=== PATIENT | male | born 1965 | race Two or more races ===

== ENCOUNTER 2018-04-20 22:14 | Inpatient (IN) | payer MEDICAID ==
[2018-04-20] MEDS ORDERED: Naloxone 0.4 mg/ml Inj (Adult) ONE ×2 (22:19→22:21)
[2018-04-20] MEDS ORDERED: Propofol 10 mg/ml 0 MG/0 ML VIAL ONE (22:36)
[2018-04-20 22:52] LABS: BASO % 0.4 % (0.0-2.0); EOS % 0.3 % (0.0-4.0); HEMOGLOBIN 14.1 g/dL (12.0-18.0); LYMPH # 2.1 K/uL (1.0-4.3); MEAN CELL VOLUME 89.9 fl (80.0-94.0); MEAN CORPUSCULAR HEMOGLOBIN 30.3 pg (27.0-31.0); MEAN CORPUSCULAR HGB CONC 33.7 g/dL (33.0-37.0); MEAN PLATELET VOLUME 7.5 fl (7.2-11.7); MONO % 11.8 % (0.0-10.0); NEUT # 5.5 K/uL (1.8-7.0); NEUT % 63.5 % (50.0-75.0); RBC 4.66 Mil/uL (4.40-5.90); RED CELL DISTRIBUTION WIDTH 14.2 % (11.5-14.5); WHITE BLOOD COUNT 8.7 K/uL (4.8-10.8)
[2018-04-20 23:01] LABS: PARTIAL THROMBOPLASTIN TIME 25.8 Seconds (25.6-37.1); PROTHROMBIN TIME 11.3 Seconds (9.8-13.1)
--- NOTE | 2018-04-20 23:04 | ED PDOC ---
HPI: Cardiac Arrest Time Seen by Provider: 04/20/18 22:50 Chief Complaint (Nursing): Cardiac Arrest Chief Complaint (Provider): Obtunded Reason For Code Blue: Unresponsive Circumstances: Brought To ED By EMS CPR Initiated Prior To MD Arrival?: Yes Down-Time Before ACLS: Unknown Treatment Initiated Prior To MD Arrival: CPR Additional Complaint(s): 53yo male, brought to ER by police and EMS with CPR in progress. Per police, patient was in a park and called 911 and reported he drank "a quarter of a bottle of red wine" and took unknown pills. Police report the patient was alert and repsonsive upon their arrival to the scene and "went out of it during the interview." En route to ER, patient was given 0.4 mg Narcan x 2 intranasally with no resolution of symptoms. On arrival, patient is obtunded; limited history due to patient's clinical condition. - Initial Findings Mentation: Unresponsive Rhythm: Tachycardia Past Medical History Reviewed: Unable To Obtain Vital Signs: Last Vital Signs Temp 96.5 F L 04/20/18 22:50 Pulse 90 04/20/18 23:45 Resp 14 04/20/18 23:45 BP 100/66 04/20/18 23:45 Pulse Ox 100 04/20/18 23:45 - Family History Family History: States: Unknown Family Hx - Allergies Allergies/Adverse Reactions: Allergies Allergy/AdvReac Type Severity Reaction Status Date / Time Unobtainable Allergy Verified 04/20/18 22:33 Review of Systems Review Of Systems: ROS cannot be obtained secondary to pt's inabilty to answer questions. Physical Exam - Reviewed Nursing Documentation Reviewed: Yes Vital Signs Reviewed: Yes - Physical Exam Appears: Positive for: In Acute Distress (Obtunded) Head Exam: Positive for: ATRAUMATIC, NORMAL INSPECTION, NORMOCEPHALIC Skin: Positive for: Normal Color Eye Exam: Positive for: Other (pinpoint pupils) Cardiovascular/Chest: Positive for: Tachycardia Back: Positive for: Other (atraumatic) Extremity: Positive for: Other (atraumatic; no track roy noted) Neurologic/Psych: Positive for: Other (GSC score of 3; absent gag reflex). Negative for: Alert, Oriented - Laboratory Results Result Diagrams: 04/20/18 22:44 04/20/18 22:44 - Critical Care Total Time (In Min): 90 Documented Critical Care: Time excludes all time spent performint seperately billable procedures Medical Decision Making Medical Decision Making: Assessment/plan: Patient brought in unresponsive by [place] PD/EMS Patient had unlabled medications in a pill bottle, examined by ER attending Dr. Miranda and patient has: Seroquil 100mg, Seroquil 200mg, Lorazepam 1mg, and Depakote 250 mg delayed release. Recommendations of poison control: 1) repeat depakote level in 4-6 hours 2) repeat EKG's serially 3) L-carnitine to be given if ammonia level is elevated 4) lipid emulsion if all other measures fail (to be re-discussed with poison control) EKG: Sinus tachycardia at 108bpm Normal ST segment Normal QRS 2225 Patient given narcan 2mg IV with no resolution of symptoms 2233 Patient intubated by provider for airway protection 2240 Right femoral triple lumen central line placed 2240 Poison control contacted recommend supportive treatment, 50g activated charcoal. -- Labs -- CT Head w/o contrast -- IV Fluids -- Chest x-ray -- Levophed 4mg/250ml D5W 2308 Patient placed on continuous monitoring analyst. Patient admitted to ICU under Dr. West. Dr. Sanchez at bedside Patient's drug screen negative likely because of recent ingestion. BP improving with levophed Scribe Attestation: Documented by Sayda Naqvi, acting as a scribe for Javier Huang MD. Provider Scribe Attestation: All medical record entries made by the Scribe were at my direction and personally dictated by me. I have reviewed the chart and agree that the record accurately reflects my personal performance of the history, physical exam, medical decision making, and the department course for this patient. I have also personally directed, reviewed, and agree with the discharge instructions and disposition. Disposition - Clinical Impression Clinical Impression: Drug overdose - Disposition Disposition Time: 23:00 Condition: SERIOUS Central Line Placement - Central Line Placement Indication: Emergent IV Access Central Line Placement: Right: Femoral The Area Was Thoroughly Prepared With: Betadine, Draped Using Sterile Technique Procedure: Triple Lumen, Sterile Dressing Placed Over Line Procedure: Intubation - Time Performed Time Performed: 22:33 - Time Out Time Out: Side verified, Site verified, Patient ID confirmed - Consent Obtained Consent obtained: Emergent consent implied - Performed By Performed by: Attending Physician - Indications Indication(s):: Airway protection - Method Method:: Oral-Laryngoscopy - Rapid Sequence Intubation Pretreatment:: Crioid Pressure - Tube type Tube type:: Endotracheal tube (7-0) Number of attempts:: 1 Depth measured at lip: cm: 23 - Confirmation Confirmation: Direct visual.of intubate, End-tidal CO2 positive, Bilat. breath sounds - Post-intubation CXR Post-intubation CXR: CM above jaylon - Post-intubation O2 sat % Post-intubation O2 sat%:: 98 - ABG Ordered ABG ordered:: Yes - Patient Tolerated Procedure Patient Tolerated Procedure:: Well Central Line Placement - Central Line Placement Indication: Emergent IV Access Central Line Placement: Right: Femoral The Area Was Thoroughly Prepared With: Betadine Procedure: Triple Lumen, Placed Using Standard Seldinger Technique, Catheter Was Sewn Into Place, Sterile Dressing Placed Over Line, Procedure Tolerated Well
[2018-04-20 23:05] LABS: ACETAMINOPHEN < 10.0 ug/ml (10.0-30.0); SALICYLATE < 1.0 mg/dl
[2018-04-20 23:06] LABS: URINE BILIRUBIN NEGATIVE (NEGATIVE); URINE BLOOD NEGATIVE (NEGATIVE); URINE CLARITY SLIGHTY-CLOUDY (Clear); URINE COLOR YELLOW (YELLOW); URINE GLUCOSE (UA) NEG (Normal); URINE LEUKOCYTE ESTERASE NEG Leu/uL (Negative); URINE PROTEIN NEGATIVE (NEGATIVE); URINE UROBILINOGEN 0.2-1.0 mg/dL (0.2-1.0)
[2018-04-20 23:06] LABS: ALB/GLOB RATIO 1.3 (1.0-2.1); ALBUMIN 3.8 g/dL (3.5-5.0); ALT/SGPT 29 U/L (21-72); AST/SGOT 21 U/L (17-59); BLOOD UREA NITROGEN 16 mg/dl (9-20); CALCIUM 8.8 mg/dL (8.4-10.2); GFR AFRICAN-AMERICAN > 60; GFR NON-AFRICAN AMERICAN 53
[2018-04-20] MEDS ORDERED: Activated Charcoal/Sorbitol 25 GM/120 ML PO ONE ×2 (23:06→23:07)
[2018-04-20 23:10] LABS: VALPROIC ACID < 10.0 ug/mL (50.0-100.0)
[2018-04-20 23:19] LABS: BARBITURATES, UR NEGATIVE (NEGATIVE); BENZODIAZEPINES, UR NEGATIVE (NEGATIVE); OPIATES, UR NEGATIVE (NEGATIVE); PHENCYCLIDINE, UR NEGATIVE (NEGATIVE)
[2018-04-20] MEDS ORDERED: Naloxone 0.4 mg/ml Inj (Adult) IVP STA (23:23)
[2018-04-20 23:39] LABS: VENOUS BLOOD GAS BASE EXCESS -2.6 mmol/L (0.0-2.0); VENOUS BLOOD GAS PCO2 36 mmHg (40-60); VENOUS BLOOD GAS PO2 76 mm/Hg (30-55); VENOUS BLOOD PH 7.39 (7.32-7.43)
[2018-04-20] MEDS ORDERED: Sodium Chloride 0.9% 1,000 ML IV SCH (23:45)
[2018-04-20 23:47] LABS: ABG ALLEN TEST YES; ARTERIAL BLOOD GAS HCO3 20.9 mmol/L (21-28); ARTERIAL BLOOD GAS O2 SAT 99.4 % (95-98); ARTERIAL BLOOD GAS PCO2 40 mm/Hg (35-45); ARTERIAL BLOOD GAS PH 7.32 (7.35-7.45); ARTERIAL BLOOD GAS PO2 239 mm/Hg (80-100); ARTERIAL BLOOD GAS TCO2 21.8 mmol/L (22-28)
--- NOTE | 2018-04-21 | CP.PCM.CON ---
History of Present Illness - History of Present Illness History of Present Illness: CC: Overdose, respiratory arrest HPI: This is a 53 y/o male with unknown medical history who called 911 from a park saying he drank part of a bottle of red wine and took several unknown pills. Apparently patient was alert and responsive when police arrived, but then lost consciousness. On the way to the ER, he was given intranasal narcan with no effect. Apparently on the way, EMS started CPR, but there is no evidence the patient actually lost pulse/went into cardiac arrest. On arrival to the ER his mental status declined and he was intubated. He was also hypotensive, so a central line was placed and he was started on levophed. The medications the patient took were identified as the following: Seroquel 100mg, Seroquel 200mg, Lorazepam 1mg, and Depakote 250 mg delayed release But it is unclear how much of each the patient took. -- Poison control was notified, and their recommendations were the followin) repeat depakote level in 4-6 hours 2) repeat EKG's serially 3) L-carnitine to be given if ammonia level is elevated 4) lipid emulsion if all other measures fail (to be re-discussed with poison control) -- ROS: unable to perform, patient not awake MHx/SHx: Unknown Allergies: Cannot be obtained Med Rec: Cannot be obtained Family/Social Hx: Unknown Past Patient History - Past Social History Smoking Status: Unknown If Ever Smoked - PSYCHIATRIC Hx Substance Use: No Meds Allergies/Adverse Reactions: Allergies Allergy/AdvReac Type Severity Reaction Status Date / Time Unobtainable Allergy Verified 04/20/18 22:33 - Medications Medications: Current Medications Norepinephrine Bitartrate 4 mg (/ Dextrose) 254 mls @ 9.52 mls/hr IV .Q24H DENG ; 2.5 MCG/MIN PRN Reason: Protocol Last Admin: 04/20/18 23:23 Dose: 2.5 mcg/min, 9.52 mls/hr Sodium Chloride (Sodium Chloride 0.9%) 4,000 mls @ 1,000 mls/hr IV .Q4H DENG Stop: 04/21/18 23:27 Last Admin: 04/20/18 23:38 Dose: 1,000 mls/hr Sodium Chloride (Sodium Chloride 0.9%) 1,000 mls @ 125 mls/hr IV .Q8H DENG Stop: 04/21/18 07:44 Pantoprazole Sodium (Protonix Inj) 40 mg IVP DAILY [facility] Physical Exam - Constitutional Appears: No Acute Distress - Head Exam Head Exam: ATRAUMATIC, NORMOCEPHALIC - ENT Exam ENT Exam: Mucous Membranes Moist - Respiratory Exam Additional comments: coarse breath sounds, on vent - Cardiovascular Exam Cardiovascular Exam: Tachycardia, +S1, +S2 - GI/Abdominal Exam GI & Abdominal Exam: Normal Bowel Sounds, Soft - Extremities Exam Extremities exam: Positive for: full ROM, normal inspection - Neurological Exam Additional comments: unresponsive, not sedated - Skin Skin Exam: Dry, Warm Results - Vital Signs Recent Vital Signs: Last Vital Signs Temp 96.5 F L 04/20/18 22:50 Pulse 90 04/20/18 23:45 Resp 14 04/20/18 23:45 BP 100/66 04/20/18 23:45 Pulse Ox 100 04/20/18 23:45 - Labs Result Diagrams: 04/20/18 22:44 04/20/18 22:44 Labs: Laboratory Results - last 24 hr 04/20/18 04/20/18 04/20/18 22:44 22:44 22:44 WBC 8.7 RBC 4.66 Hgb 14.1 Hct 41.9 MCV 89.9 MCH 30.3 MCHC 33.7 RDW 14.2 Plt Count 249 MPV 7.5 Neut % (Auto) 63.5 Lymph % (Auto) 24.0 [place] % (Auto) 11.8 H Eos % (Auto) 0.3 Baso % (Auto) 0.4 Neut # (Auto) 5.5 Lymph # (Auto) 2.1 [place] # (Auto) 1.0 H Eos # (Auto) 0.0 Baso # (Auto) 0.0 PT 11.3 INR 1.0 APTT 25.8 pCO2 pO2 HCO3 ABG pH ABG Total CO2 ABG O2 Saturation ABG Base Excess Flo Test ABG Potassium A-a O2 Difference Glucose Lactate Mechanical Rate FiO2 Tidal Volume Sodium 136 Potassium 3.9 Chloride 101 Carbon Dioxide 23 Anion Gap 16 BUN 16 Creatinine 1.4 Est GFR ( Amer) > 60 Est GFR (Non-Af Amer) 53 Random Glucose 120 H Calcium 8.8 Phosphorus 4.0 Magnesium 2.4 H Total Bilirubin 0.4 AST 21 ALT 29 Alkaline Phosphatase 54 Troponin I < 0.0120 Total Protein 6.8 Albumin 3.8 Globulin 3.0 Albumin/Globulin Ratio 1.3 Arterial Blood Potassium Urine Color Urine Clarity Urine pH Ur Specific [place] Urine Protein Urine Glucose (UA) Urine Ketones Urine Blood Urine Nitrate Urine Bilirubin Urine Urobilinogen Ur Leukocyte Esterase Urine Microscopic WBC Salicylates Urine Opiates Screen Urine Methadone Screen Acetaminophen Ur Barbiturates Screen Valproic Acid Ur Phencyclidine Scrn Ur Amphetamines Screen U Benzodiazepines Scrn U Oth Cocaine Metabols U Cannabinoids Screen Alcohol, Quantitative 217 H 04/20/18 04/20/18 04/20/18 22:44 22:50 22:50 WBC RBC Hgb Hct MCV MCH MCHC RDW Plt Count MPV Neut % (Auto) Lymph % (Auto) [place] % (Auto) Eos % (Auto) Baso % (Auto) Neut # (Auto) Lymph # (Auto) [place] # (Auto) Eos # (Auto) Baso # (Auto) PT INR APTT pCO2 pO2 HCO3 ABG pH ABG Total CO2 ABG O2 Saturation ABG Base Excess Flo Test ABG Potassium A-a O2 Difference Glucose Lactate Mechanical Rate FiO2 Tidal Volume Sodium Potassium Chloride Carbon Dioxide Anion Gap BUN Creatinine Est GFR ( Amer) Est GFR (Non-Af Amer) Random Glucose Calcium Phosphorus Magnesium Total Bilirubin AST ALT Alkaline Phosphatase Troponin I Total Protein Albumin Globulin Albumin/Globulin Ratio Arterial Blood Potassium Urine Color Yellow Urine Clarity Slighty-cloudy Urine pH 6.0 Ur Specific [place] 1.008 Urine Protein Negative Urine Glucose (UA) Neg Urine Ketones Negative Urine Blood Negative Urine Nitrate Negative Urine Bilirubin Negative Urine Urobilinogen 0.2-1.0 Ur Leukocyte Esterase Neg Urine Microscopic WBC 1 Salicylates < 1.0 Urine Opiates Screen Negative Urine Methadone Screen Negative Acetaminophen < 10.0 L Ur Barbiturates Screen Negative Valproic Acid < 10.0 L Ur Phencyclidine Scrn Negative Ur Amphetamines Screen Negative U Benzodiazepines Scrn Negative U Oth Cocaine Metabols Negative U Cannabinoids Screen Negative Alcohol, Quantitative 04/20/18 23:38 WBC RBC Hgb Hct MCV MCH MCHC RDW Plt Count MPV Neut % (Auto) Lymph % (Auto) [place] % (Auto) Eos % (Auto) Baso % (Auto) Neut # (Auto) Lymph # (Auto) [place] # (Auto) Eos # (Auto) Baso # (Auto) PT INR APTT pCO2 40 pO2 239 H HCO3 20.9 L ABG pH 7.32 L ABG Total CO2 21.8 L ABG O2 Saturation 99.4 H ABG Base Excess -5.2 L Flo Test Yes ABG Potassium 3.5 L A-a O2 Difference 139.0 Glucose 125 H Lactate 3.0 H Mechanical Rate 14 FiO2 60.0 Tidal Volume 500 Sodium 136.0 Potassium Chloride 108.0 H Carbon Dioxide Anion Gap BUN Creatinine Est GFR ( Amer) Est GFR (Non-Af Amer) Random Glucose Calcium Phosphorus Magnesium Total Bilirubin AST ALT Alkaline Phosphatase Troponin I Total Protein Albumin Globulin Albumin/Globulin Ratio Arterial Blood Potassium 3.5 L Urine Color Urine Clarity Urine pH Ur Specific [place] Urine Protein Urine Glucose (UA) Urine Ketones Urine Blood Urine Nitrate Urine Bilirubin Urine Urobilinogen Ur Leukocyte Esterase Urine Microscopic WBC Salicylates Urine Opiates Screen Urine Methadone Screen Acetaminophen Ur Barbiturates Screen Valproic Acid Ur Phencyclidine Scrn Ur Amphetamines Screen U Benzodiazepines Scrn U Oth Cocaine Metabols U Cannabinoids Screen Alcohol, Quantitative - EKG Data EKG Interpreted by: Myself EKG shows normal: Sinus rhythm Rate: Tachycardia - EKG Data EKG comments: sinus tach - Imaging and Cardiology Chest x-ray Status: Image reviewed by me (No acute findings. Patient is now intubated.) Assessment & Plan (1) Overdose Assessment and Plan: 53 y/o male with polysubstance overdose in suicide attempt. -admit to ICU -Serial depakote levels and serial EKGs as noted per poison control in history section -Repeat labs in AM -Repeat CXR and ABG in AM -Cont IVF -Cont Pressors as needed to maintain MAP 55-60 -GI PPx with IV protonix -DVT PPx with SCDs only for now Status: Acute (2) Respiratory arrest Status: Acute (3) DVT prophylaxis Status: Acute
[2018-04-21 04:34] LABS: ABG ALLEN TEST YES; ARTERIAL BLOOD GAS HEMOGLOBIN 12.2 g/dL (11.7-17.4); ARTERIAL BLOOD GAS O2 CAPACITY 17.5 mL/dL (16-24); ARTERIAL BLOOD GAS O2 CONTENT 17.4 ML/dL (15-23); ARTERIAL BLOOD GAS O2 SAT 99.7 % (95-98); ARTERIAL BLOOD GAS PCO2 42 mm/Hg (35-45); ARTERIAL BLOOD GAS PH 7.33 (7.35-7.45); ARTERIAL BLOOD GAS PO2 275 mm/Hg (80-100); ARTERIAL BLOOD GAS TCO2 23.4 mmol/L (22-28)
[2018-04-21 05:29] LABS: BASO % 0.3 % (0.0-2.0); EOS % 0.1 % (0.0-4.0); HEMOGLOBIN 13.2 g/dL (12.0-18.0); LYMPH # 1.5 K/uL (1.0-4.3); LYMPH % 13.9 % (20.0-40.0); MEAN CELL VOLUME 91.3 fl (80.0-94.0); MEAN CORPUSCULAR HEMOGLOBIN 30.6 pg (27.0-31.0); MEAN CORPUSCULAR HGB CONC 33.5 g/dL (33.0-37.0); MEAN PLATELET VOLUME 7.7 fl (7.2-11.7); MONO # 1.6 K/uL (0.0-0.8); MONO % 14.8 % (0.0-10.0); NEUT # 7.5 K/uL (1.8-7.0); NEUT % 70.9 % (50.0-75.0); NRBC % 0.1 % (0.0-0.0); RBC 4.32 Mil/uL (4.40-5.90); RED CELL DISTRIBUTION WIDTH 14.4 % (11.5-14.5); WHITE BLOOD COUNT 10.6 K/uL (4.8-10.8)
[2018-04-21 05:44] LABS: ALB/GLOB RATIO 1.2 (1.0-2.1); ALBUMIN 3.1 g/dL (3.5-5.0); ALT/SGPT 27 U/L (21-72); AST/SGOT 17 U/L (17-59); BLOOD UREA NITROGEN 13 mg/dl (9-20); GFR AFRICAN-AMERICAN > 60; GFR NON-AFRICAN AMERICAN > 60
--- NOTE | 2018-04-21 09:06 | CT ---
Date of service: 04/21/2018 PROCEDURE: CT HEAD WITHOUT CONTRAST. HISTORY: unresponsive COMPARISON: None available. TECHNIQUE: Axial computed tomography images were obtained through the head/brain without intravenous contrast. Radiation dose: Total exam DLP = 934.02 mGy-cm. This CT exam was performed using one or more of the following dose reduction techniques: Automated exposure control, adjustment of the mA and/or kV according to patient size, and/or use of iterative reconstruction technique. FINDINGS: HEMORRHAGE: Non BRAIN: No mass effect or edema. No atrophy or chronic microvascular ischemic changes. VENTRICLES: Unremarkable. No hydrocephalus. CALVARIUM: Unremarkable. PARANASAL SINUSES: Mild chronic ethmoid sinusitis MASTOID AIR CELLS: Unremarkable as visualized. No inflammatory changes. OTHER FINDINGS: None. IMPRESSION: No intracranial mass, hemorrhage or evidence of acute infarct. Mild chronic ethmoid sinusitis. Otherwise unremarkable. The preliminary findings for this examination were reported by [facility] at 12:52 a.m. on 04/21/2018. There is concurrence of this report with the preliminary findings.
--- NOTE | 2018-04-21 11:51 | RAD ---
Date of service: 04/21/2018 PROCEDURE: CHEST RADIOGRAPH, 1 VIEW HISTORY: intubated COMPARISON: 04/20/2018 FINDINGS: LUNGS: Clear. PLEURA: No pneumothorax or pleural fluid seen. CARDIOVASCULAR: ET tube and NG tube unchanged in position. OSSEOUS STRUCTURES: No significant abnormalities. VISUALIZED UPPER ABDOMEN: Normal. OTHER FINDINGS: None. IMPRESSION: No active disease.
--- NOTE | 2018-04-21 12:47 | CP.PCM.CON ---
History of Present Illness - History of Present Illness History of Present Illness: This 53 YOM was brought to ER by EMS after he called himself and told he had ingested lots of his meds and a bottled of red wine. When police arrived , he was reported to be awake, but lost conscious soon. He was given intranasal narcan without any effect. CPR was started by EMS by reportedly he had a pulse when brought to ER and was intubated in ER. Admitting physician and ER, d/w poison control and patient is being given supportive treatment . He was hypotensive , was give IVF and was started on low dose Levophed through a TLC. Repeated ELG has been unremarkable, electrolytes has been unremarkable. valporic acid level is not high and ammonia level also is low. I have evaluate the patient multiple times in ICU since morning, his BP has been stale, on levophed, which is being taperred off. He was totally unresponsive in the morning but now, by noon time , he opens his eyes on verbal command but not following command, still very sleepy. The medications the patient took were identified as the following: Seroquel 100mg, Seroquel 200mg, Lorazepam 1mg, and Depakote 250 mg delayed release But it is unclear how much of each the patient took. Review of Systems - Review of Systems Systems not reviewed;Unavailable: Intubated - Constitutional Constitutional: As Per HPI - EENT Eyes: As Per HPI Nose/Mouth/Throat: As Per HPI - Cardiovascular Cardiovascular: As Per HPI - Respiratory Respiratory: As Per HPI Past Patient History - Past Social History Smoking Status: Unknown If Ever Smoked - MUSCULOSKELETAL/RHEUMATOLOGICAL Hx Falls: No (unknown) - PSYCHIATRIC Hx Substance Use: No Meds Allergies/Adverse Reactions: Allergies Allergy/AdvReac Type Severity Reaction Status Date / Time Unobtainable Allergy Verified 04/20/18 22:33 - Medications Medications: Current Medications Norepinephrine Bitartrate 4 mg (/ Dextrose) 254 mls @ 9.52 mls/hr IV .Q24H DENG ; 2.5 MCG/MIN PRN Reason: Protocol Last Admin: 04/20/18 23:23 Dose: 2.5 mcg/min, 9.52 mls/hr Sodium Chloride (Sodium Chloride 0.9%) 4,000 mls @ 1,000 mls/hr IV .Q4H DENG Stop: 04/21/18 23:27 Last Admin: 04/20/18 23:38 Dose: 1,000 mls/hr Pantoprazole Sodium (Protonix Inj) 40 mg IVP DAILY [facility] Last Admin: 04/21/18 08:49 Dose: 40 mg Physical Exam - Head Exam Head Exam: ATRAUMATIC - Eye Exam Pupil Exam: PERRL - ENT Exam ENT Exam: Normal Exam - Cardiovascular Exam Cardiovascular Exam: REGULAR RHYTHM - GI/Abdominal Exam GI & Abdominal Exam: Soft Results - Vital Signs Recent Vital Signs: Last Vital Signs Temp 98.1 F 04/21/18 12:00 Pulse 93 H 04/21/18 12:00 Resp 16 04/21/18 12:00 BP 141/87 04/21/18 12:00 Pulse Ox 100 04/21/18 12:00 - Labs Result Diagrams: 04/21/18 04:32 04/21/18 04:32 Labs: Laboratory Results - last 24 hr 04/20/18 04/20/18 04/20/18 22:40 22:44 22:44 WBC 8.7 RBC 4.66 Hgb 14.1 Hct 41.9 MCV 89.9 MCH 30.3 MCHC 33.7 RDW 14.2 Plt Count 249 MPV 7.5 Neut % (Auto) 63.5 Lymph % (Auto) 24.0 Stewart % (Auto) 11.8 H Eos % (Auto) 0.3 Baso % (Auto) 0.4 Neut # (Auto) 5.5 Lymph # (Auto) 2.1 Stewart # (Auto) 1.0 H Eos # (Auto) 0.0 Baso # (Auto) 0.0 PT INR APTT pCO2 pO2 HCO3 ABG pH ABG Total CO2 ABG O2 Saturation ABG O2 Content ABG Base Excess ABG Hemoglobin ABG Carboxyhemoglobin POC ABG HHb (Measured) ABG Methemoglobin ABG O2 Capacity Flo Test ABG Potassium A-a O2 Difference Hgb O2 Saturation Glucose Lactate Vent Mode Mechanical Rate FiO2 Tidal Volume PEEP Sodium 136 Potassium 3.9 Chloride 101 Carbon Dioxide 23 Anion Gap 16 BUN 16 Creatinine 1.4 Est GFR ( Amer) > 60 Est GFR (Non-Af Amer) 53 Random Glucose 120 H Calcium 8.8 Phosphorus 4.0 Magnesium 2.4 H Total Bilirubin 0.4 AST 21 ALT 29 Alkaline Phosphatase 54 Ammonia Troponin I < 0.0120 Total Protein 6.8 Albumin 3.8 Globulin 3.0 Albumin/Globulin Ratio 1.3 Arterial Blood Potassium Urine Color Urine Clarity Urine pH Ur Specific [place] Urine Protein Urine Glucose (UA) Urine Ketones Urine Blood Urine Nitrate Urine Bilirubin Urine Urobilinogen Ur Leukocyte Esterase Urine Microscopic WBC Salicylates Urine Opiates Screen Urine Methadone Screen Acetaminophen Ur Barbiturates Screen Valproic Acid Ur Phencyclidine Scrn Ur Amphetamines Screen U Benzodiazepines Scrn U Oth Cocaine Metabols U Cannabinoids Screen Alcohol, Quantitative 217 H Blood Type O POSITIVE Blood Type Confirm Antibody Screen Negative BBK History Checked No verified bt 04/20/18 04/20/18 04/20/18 22:44 22:44 22:50 WBC RBC Hgb Hct MCV MCH MCHC RDW Plt Count MPV Neut % (Auto) Lymph % (Auto) Stewart % (Auto) Eos % (Auto) Baso % (Auto) Neut # (Auto) Lymph # (Auto) Stewart # (Auto) Eos # (Auto) Baso # (Auto) PT 11.3 INR 1.0 APTT 25.8 pCO2 pO2 HCO3 ABG pH ABG Total CO2 ABG O2 Saturation ABG O2 Content ABG Base Excess ABG Hemoglobin ABG Carboxyhemoglobin POC ABG HHb (Measured) ABG Methemoglobin ABG O2 Capacity Flo Test ABG Potassium A-a O2 Difference Hgb O2 Saturation Glucose Lactate Vent Mode Mechanical Rate FiO2 Tidal Volume PEEP Sodium Potassium Chloride Carbon Dioxide Anion Gap BUN Creatinine Est GFR ( Amer) Est GFR (Non-Af Amer) Random Glucose Calcium Phosphorus Magnesium Total Bilirubin AST ALT Alkaline Phosphatase Ammonia Troponin I Total Protein Albumin Globulin Albumin/Globulin Ratio Arterial Blood Potassium Urine Color Urine Clarity Urine pH Ur Specific [place] Urine Protein Urine Glucose (UA) Urine Ketones Urine Blood Urine Nitrate Urine Bilirubin Urine Urobilinogen Ur Leukocyte Esterase Urine Microscopic WBC Salicylates < 1.0 Urine Opiates Screen Negative Urine Methadone Screen Negative Acetaminophen < 10.0 L Ur Barbiturates Screen Negative Valproic Acid < 10.0 L Ur Phencyclidine Scrn Negative Ur Amphetamines Screen Negative U Benzodiazepines Scrn Negative U Oth Cocaine Metabols Negative U Cannabinoids Screen Negative Alcohol, Quantitative Blood Type Blood Type Confirm Antibody Screen BBK History Checked 04/20/18 04/20/18 04/20/18 22:50 23:38 23:57 WBC RBC Hgb Hct MCV MCH MCHC RDW Plt Count MPV Neut % (Auto) Lymph % (Auto) Stewart % (Auto) Eos % (Auto) Baso % (Auto) Neut # (Auto) Lymph # (Auto) Stewart # (Auto) Eos # (Auto) Baso # (Auto) PT INR APTT pCO2 40 pO2 239 H HCO3 20.9 L ABG pH 7.32 L ABG Total CO2 21.8 L ABG O2 Saturation 99.4 H ABG O2 Content ABG Base Excess -5.2 L ABG Hemoglobin ABG Carboxyhemoglobin POC ABG HHb (Measured) ABG Methemoglobin ABG O2 Capacity Flo Test Yes ABG Potassium 3.5 L A-a O2 Difference 139.0 Hgb O2 Saturation Glucose 125 H Lactate 3.0 H Vent Mode Mechanical Rate 14 FiO2 60.0 Tidal Volume 500 PEEP Sodium 136.0 Potassium Chloride 108.0 H Carbon Dioxide Anion Gap BUN Creatinine Est GFR ( Amer) Est GFR (Non-Af Amer) Random Glucose Calcium Phosphorus Magnesium Total Bilirubin AST ALT Alkaline Phosphatase Ammonia < 9 L Troponin I Total Protein Albumin Globulin Albumin/Globulin Ratio Arterial Blood Potassium 3.5 L Urine Color Yellow Urine Clarity Slighty-cloudy Urine pH 6.0 Ur Specific [place] 1.008 Urine Protein Negative Urine Glucose (UA) Neg Urine Ketones Negative Urine Blood Negative Urine Nitrate Negative Urine Bilirubin Negative Urine Urobilinogen 0.2-1.0 Ur Leukocyte Esterase Neg Urine Microscopic WBC 1 Salicylates Urine Opiates Screen Urine Methadone Screen Acetaminophen Ur Barbiturates Screen Valproic Acid Ur Phencyclidine Scrn Ur Amphetamines Screen U Benzodiazepines Scrn U Oth Cocaine Metabols U Cannabinoids Screen Alcohol, Quantitative Blood Type Blood Type Confirm Antibody Screen BBK History Checked 04/21/18 04/21/18 04/21/18 01:14 03:46 04:32 WBC 10.6 RBC 4.32 L Hgb 13.2 Hct 39.5 MCV 91.3 MCH 30.6 MCHC 33.5 RDW 14.4 Plt Count 187 MPV 7.7 Neut % (Auto) 70.9 Lymph % (Auto) 13.9 L Stewart % (Auto) 14.8 H Eos % (Auto) 0.1 Baso % (Auto) 0.3 Neut # (Auto) 7.5 H Lymph # (Auto) 1.5 Stewart # (Auto) 1.6 H Eos # (Auto) 0.0 Baso # (Auto) 0.0 PT INR APTT pCO2 42 pO2 275 H HCO3 22.0 ABG pH 7.33 L ABG Total CO2 23.4 ABG O2 Saturation 99.7 H ABG O2 Content 17.4 ABG Base Excess -3.7 L ABG Hemoglobin 12.2 ABG Carboxyhemoglobin 1.0 POC ABG HHb (Measured) 0.3 ABG Methemoglobin 1.4 ABG O2 Capacity 17.5 Flo Test Yes ABG Potassium A-a O2 Difference 100.0 Hgb O2 Saturation 97.3 Glucose Lactate Vent Mode Prvc ac Mechanical Rate 14 FiO2 60.0 Tidal Volume 500 PEEP 0 Sodium Potassium Chloride Carbon Dioxide Anion Gap BUN Creatinine Est GFR ( Amer) Est GFR (Non-Af Amer) Random Glucose Calcium Phosphorus Magnesium Total Bilirubin AST ALT Alkaline Phosphatase Ammonia Troponin I Total Protein Albumin Globulin Albumin/Globulin Ratio Arterial Blood Potassium Urine Color Urine Clarity Urine pH Ur Specific [place] Urine Protein Urine Glucose (UA) Urine Ketones Urine Blood Urine Nitrate Urine Bilirubin Urine Urobilinogen Ur Leukocyte Esterase Urine Microscopic WBC Salicylates Urine Opiates Screen Urine Methadone Screen Acetaminophen Ur Barbiturates Screen Valproic Acid < 10.0 L Ur Phencyclidine Scrn Ur Amphetamines Screen U Benzodiazepines Scrn U Oth Cocaine Metabols U Cannabinoids Screen Alcohol, Quantitative Blood Type Blood Type Confirm Antibody Screen BBK History Checked 04/21/18 04/21/18 04/21/18 04:32 04:32 09:11 WBC RBC Hgb Hct MCV MCH MCHC RDW Plt Count MPV Neut % (Auto) Lymph % (Auto) Stewart % (Auto) Eos % (Auto) Baso % (Auto) Neut # (Auto) Lymph # (Auto) Stewart # (Auto) Eos # (Auto) Baso # (Auto) PT INR APTT pCO2 pO2 HCO3 ABG pH ABG Total CO2 ABG O2 Saturation ABG O2 Content ABG Base Excess ABG Hemoglobin ABG Carboxyhemoglobin POC ABG HHb (Measured) ABG Methemoglobin ABG O2 Capacity Flo Test ABG Potassium A-a O2 Difference Hgb O2 Saturation Glucose Lactate Vent Mode Mechanical Rate FiO2 Tidal Volume PEEP Sodium 138 Potassium 4.0 Chloride 106 Carbon Dioxide 20 L Anion Gap 16 BUN 13 Creatinine 1.0 Est GFR ( Amer) > 60 Est GFR (Non-Af Amer) > 60 Random Glucose 106 Calcium 8.0 L Phosphorus Magnesium Total Bilirubin 0.7 AST 17 ALT 27 Alkaline Phosphatase 47 Ammonia Troponin I Total Protein 5.7 L Albumin 3.1 L Globulin 2.6 Albumin/Globulin Ratio 1.2 Arterial Blood Potassium Urine Color Urine Clarity Urine pH Ur Specific [place] Urine Protein Urine Glucose (UA) Urine Ketones Urine Blood Urine Nitrate Urine Bilirubin Urine Urobilinogen Ur Leukocyte Esterase Urine Microscopic WBC Salicylates Urine Opiates Screen Urine Methadone Screen Acetaminophen Ur Barbiturates Screen Valproic Acid < 10.0 L Ur Phencyclidine Scrn Ur Amphetamines Screen U Benzodiazepines Scrn U Oth Cocaine Metabols U Cannabinoids Screen Alcohol, Quantitative Blood Type Blood Type Confirm O POSITIVE Antibody Screen BBK History Checked 04/21/18 09:15 WBC RBC Hgb Hct MCV MCH MCHC RDW Plt Count MPV Neut % (Auto) Lymph % (Auto) Stewart % (Auto) Eos % (Auto) Baso % (Auto) Neut # (Auto) Lymph # (Auto) Stewart # (Auto) Eos # (Auto) Baso # (Auto) PT INR APTT pCO2 pO2 HCO3 ABG pH ABG Total CO2 ABG O2 Saturation ABG O2 Content ABG Base Excess ABG Hemoglobin ABG Carboxyhemoglobin POC ABG HHb (Measured) ABG Methemoglobin ABG O2 Capacity Flo Test ABG Potassium A-a O2 Difference Hgb O2 Saturation Glucose Lactate Vent Mode Mechanical Rate FiO2 Tidal Volume PEEP Sodium Potassium Chloride Carbon Dioxide Anion Gap BUN Creatinine Est GFR ( Amer) Est GFR (Non-Af Amer) Random Glucose Calcium Phosphorus Magnesium Total Bilirubin AST ALT Alkaline Phosphatase Ammonia Troponin I Total Protein Albumin Globulin Albumin/Globulin Ratio Arterial Blood Potassium Urine Color Urine Clarity Urine pH Ur Specific [place] Urine Protein Urine Glucose (UA) Urine Ketones Urine Blood Urine Nitrate Urine Bilirubin Urine Urobilinogen Ur Leukocyte Esterase Urine Microscopic WBC Salicylates Urine Opiates Screen Urine Methadone Screen Acetaminophen Ur Barbiturates Screen Valproic Acid < 10.0 L Ur Phencyclidine Scrn Ur Amphetamines Screen U Benzodiazepines Scrn U Oth Cocaine Metabols U Cannabinoids Screen Alcohol, Quantitative Blood Type Blood Type Confirm Antibody Screen BBK History Checked Assessment & Plan - Assessment and Plan (Free Text) Assessment: Assessment & Plan (1) Drug Overdose with suicidal ideas Assessment and Plan: 53 YOM with polysubstance overdose in suicide attempt. -admit to ICU -Serial depakote levels and serial EKGs as noted per poison control in history section : reviewed. --Cont IVF -Weaning off Pressors now On IVF NS at 100 cc/h -GI PPx with IV protonix -DVT PPx with SCDs only for now Status: Acute (2) Respiratory arrest Status: Acute ABG reviewed, Vent setting adjusted , reduced Fio to 0.40 AC VT 500 ml (3) DVT prophylaxis Status: Acute
--- NOTE | 2018-04-21 13:42 | CARD ---
APPROVED REPORT Date of service: 04/21/2018 EKG Measurement Heart [id number] <Conclusion> Normal sinus rhythm Normal ECG
--- NOTE | 2018-04-21 13:42 | CARD ---
APPROVED REPORT Date of service: 04/21/2018 EKG Measurement Heart [id number] <Conclusion> Normal sinus rhythm Normal ECG
--- NOTE | 2018-04-21 13:45 | CARD ---
APPROVED REPORT Date of service: 04/20/2018 EKG Measurement Heart [id number] <Conclusion> Sinus tachycardia Possible Left atrial enlargement Borderline ECG
--- NOTE | 2018-04-21 15:08 | RAD ---
Date of service: 04/20/2018 HISTORY: overdose COMPARISON: No prior. FINDINGS: LUNGS: No active pulmonary disease. PLEURA: No significant pleural effusion identified, no pneumothorax apparent. CARDIOVASCULAR: Normal heart size. ET tube noted with tip approximately 6.0 cm above tracheal jaylon. Nasogastric tube extends beneath the left hemidiaphragm. OSSEOUS STRUCTURES: No significant abnormalities. VISUALIZED UPPER ABDOMEN: Normal. OTHER FINDINGS: None. IMPRESSION: ET tube and NG tube noted. No infiltrate.
--- NOTE | 2018-04-21 18:39 | HP ---
CHIEF COMPLAINT: Found unresponsive. HISTORY OF PRESENT ILLNESS: This is a 53-year-old male who is currently in intensive care unit on mechanical ventilation and is unresponsive and is not able to provide informative history or review of systems. History is obtained from the chart according to which the patient is a 53-year-old male without known medical history, who [place] the park and called 911 as the patient drank half a bottle of wine and some unknown pills of unknown quantity. On arrival of EMS, the patient was apparently responsive and talkative, but quickly the patient became obtunded and CPR was started and the patient was transferred to emergency room where the patient was orally intubated and admitted to intensive care unit. As mentioned earlier, history and review of systems is not obtainable. PAST MEDICAL HISTORY: Not available. PAST SURGICAL HISTORY: Not available. PERSONAL HISTORY: Not available. FAMILY HISTORY: Unknown. MEDICATION HISTORY: Unknown. ALLERGY HISTORY: UNKNOWN. PHYSICAL EXAMINATION: GENERAL: The patient is orally intubated on mechanical ventilation in the intensive care unit, and very minimal response to painful stimuli, but the patient is otherwise unresponsive. VITAL SIGNS: Temperature afebrile, pulse 81, respirations 16, blood pressure 122/76, saturation 100%. HEENT: Pupils reactive. HEART: S1 and S2, normal and regular. LUNGS: Good bilateral air exchange. ABDOMEN: Soft, nontender. No organomegaly. No fluid. Bowel sounds are plus and normal. EXTREMITIES: No edema. No calf swelling. No tenderness. No acute ischemia. BRIM IRONER HAND: Exam is essentially unchanged. DIAGNOSTIC DATA: Available diagnostic data reviewed. Telemetry monitoring does not reveal significant arrhythmias. WBC 10.6, hemoglobin 13.2, hematocrit 39.5, platelets 187. The pH 7.33, pCO2 of 23, pO2 of 275, saturation is 99.7%. Sodium 138, potassium 4, chloride 106, bicarb 20, BUN 13, creatinine 1. SMA-12 is unremarkable. Toxicology is negative. Valproic acid level is less than 10. EKG does not reveal any acute ST-T changes. CAT scan of head did not reveal any acute intracranial bleed, although official report of same is pending. Chest x-ray is clear. EKG was in good position. ADMITTING IMPRESSION: Suspected drug overdose, respiratory failure. PLAN: As ordered. Twan West MD [facility] # [id number]
[2018-04-22 05:49] LABS: HEMOGLOBIN 12.8 g/dL (12.0-18.0); MEAN CELL VOLUME 91.1 fl (80.0-94.0); MEAN CORPUSCULAR HEMOGLOBIN 30.3 pg (27.0-31.0); MEAN CORPUSCULAR HGB CONC 33.2 g/dL (33.0-37.0); RBC 4.22 Mil/uL (4.40-5.90); RED CELL DISTRIBUTION WIDTH 14.5 % (11.5-14.5); WHITE BLOOD COUNT 9.1 K/uL (4.8-10.8)
[2018-04-22 06:13] LABS: ALB/GLOB RATIO 1.1 (1.0-2.1); ALBUMIN 3.3 g/dL (3.5-5.0); ALT/SGPT 19 U/L (21-72); AST/SGOT 28 U/L (17-59); BLOOD UREA NITROGEN 9 mg/dl (9-20); CALCIUM 8.3 mg/dL (8.4-10.2); GFR AFRICAN-AMERICAN > 60; GFR NON-AFRICAN AMERICAN > 60
--- NOTE | 2018-04-22 09:22 | CP.CCUPN ---
CCU Subjective - Physician Review Events Since Last Encounter (Free Text): 04/22/18 09:19 Alert and oriented , no sob, no pain Was extubated yesterday Insisting in going home and at time, becomes agitated , tasha sanchez was called last night on him. Will be evaluated by psychiatrist today and then plan for disposition will be made. Was given Ativan 2 m IV last night for agitation and was given 1 mg this am. All labs are WNL and BP has been stable CCU Objective - Vital Signs / Intake & Output Vital Signs (Last 4 hours): Vital Signs Pulse Resp BP Pulse Ox 04/22/18 06:00 84 18 163/94 H 98 Intake and Output (Last 8hrs): Intake & Output 04/21/18 04/22/18 04/22/18 22:59 06:59 14:59 Intake Total 820 885 Output Total 3800 2750 Balance -2980 -1865 Intake: IV 600 525 Oral 220 360 Output: Urine 3800 2750 Urethral (Vance) 3800 2750 - Physical Exam Narrative Physical Exam (Free Text): 04/22/18 09:22 P/E neck: no JVD Lungs: No ronchi, crackles Abdomen: soft, non-tender Ext: no edema Heart: no gallop - Medications Active Medications: Active Medications Generic Name Dose Route Start Last Admin Trade Name Freq PRN Reason Stop Dose Admin Pantoprazole Sodium 40 mg 04/21/18 09:00 04/22/18 08:52 Protonix Inj IVP 40 mg DAILY DENG Administration - Patient Studies Lab Studies: Lab Studies 04/22/18 04/22/18 04/21/18 Range/Units 04:28 04:28 09:15 WBC 9.1 (4.8-10.8) K/uL RBC 4.22 L (4.40-5.90) Mil/uL Hgb 12.8 (12.0-18.0) g/dL Hct 38.4 (35.0-51.0) % MCV 91.1 (80.0-94.0) fl MCH 30.3 (27.0-31.0) pg MCHC 33.2 (33.0-37.0) g/dL RDW 14.5 (11.5-14.5) % Plt Count 209 (130-400) K/uL Sodium 141 (132-148) mmol/l Potassium 4.6 (3.6-5.0) MMOL/L Chloride 108 H (98-107) mmol/L Carbon Dioxide 27 (22-30) mmol/L Anion Gap 11 (10-20) BUN 9 (9-20) mg/dl Creatinine 0.9 (0.8-1.5) mg/dl Est GFR ( Amer) > 60 Est GFR (Non-Af Amer) > 60 Random Glucose 86 (75-110) mg/dL Calcium 8.3 L (8.4-10.2) mg/dL Total Bilirubin 1.3 (0.2-1.3) mg/dl AST 28 (17-59) U/L ALT 19 L D (21-72) U/L Alkaline Phosphatase 46 (38-126) U/L Total Protein 6.3 (6.3-8.2) G/DL Albumin 3.3 L (3.5-5.0) g/dL Globulin 3.0 (2.2-3.9) gm/dL Albumin/Globulin Ratio 1.1 (1.0-2.1) Valproic Acid < 10.0 L (50.0-100.0) ug/mL Blood Type Confirm 04/21/18 Range/Units 09:11 WBC (4.8-10.8) K/uL RBC (4.40-5.90) Mil/uL Hgb (12.0-18.0) g/dL Hct (35.0-51.0) % MCV (80.0-94.0) fl MCH (27.0-31.0) pg MCHC (33.0-37.0) g/dL RDW (11.5-14.5) % Plt Count (130-400) K/uL Sodium (132-148) mmol/l Potassium (3.6-5.0) MMOL/L Chloride (98-107) mmol/L Carbon Dioxide (22-30) mmol/L Anion Gap (10-20) BUN (9-20) mg/dl Creatinine (0.8-1.5) mg/dl Est GFR ( Amer) Est GFR (Non-Af Amer) Random Glucose (75-110) mg/dL Calcium (8.4-10.2) mg/dL Total Bilirubin (0.2-1.3) mg/dl AST (17-59) U/L ALT (21-72) U/L Alkaline Phosphatase (38-126) U/L Total Protein (6.3-8.2) G/DL Albumin (3.5-5.0) g/dL Globulin (2.2-3.9) gm/dL Albumin/Globulin Ratio (1.0-2.1) Valproic Acid (50.0-100.0) ug/mL Blood Type Confirm O POSITIVE Laboratory Results - last 24 hr 04/21/18 04/21/18 04/22/18 09:11 09:15 04:28 WBC 9.1 RBC 4.22 L Hgb 12.8 Hct 38.4 MCV 91.1 MCH 30.3 MCHC 33.2 RDW 14.5 Plt Count 209 Sodium Potassium Chloride Carbon Dioxide Anion Gap BUN Creatinine Est GFR ( Amer) Est GFR (Non-Af Amer) Random Glucose Calcium Total Bilirubin AST ALT Alkaline Phosphatase Total Protein Albumin Globulin Albumin/Globulin Ratio Valproic Acid < 10.0 L Blood Type Confirm O POSITIVE 04/22/18 04:28 WBC RBC Hgb Hct MCV MCH MCHC RDW Plt Count Sodium 141 Potassium 4.6 Chloride 108 H Carbon Dioxide 27 Anion Gap 11 BUN 9 Creatinine 0.9 Est GFR ( Amer) > 60 Est GFR (Non-Af Amer) > 60 Random Glucose 86 Calcium 8.3 L Total Bilirubin 1.3 AST 28 ALT 19 L D Alkaline Phosphatase 46 Total Protein 6.3 Albumin 3.3 L Globulin 3.0 Albumin/Globulin Ratio 1.1 Valproic Acid Blood Type Confirm Critical Care Progress Note - Nutrition Nutrition: Nutrition Category Date Time Status Regular Diet [DIET] Diets 04/22/18 Breakfast Active Assessment/Plan - Assessment and Plan (Free Text) Assessment: Assessment & Plan (1) Drug Overdose with suicidal ideas Assessment and Plan: 53 YOM with polysubstance overdose in suicide attempt. --DC IVF --DVT PPx with SCDs only for now Status: Acute Psych evaluation
--- NOTE | 2018-04-22 10:29 | PN ---
DATE: 04/22/2018 SUBJECTIVE: The patient seen and examined. Interim events noted. Consults noted and appreciated. Home Care Coordinator and triage sheet noted and appreciated. The patient improved remarkably, awake, responsive; if anything, a little bit agitated requiring one-to-one observation, wanting to go home. Denies any complaint of chest pain, shortness of breath, dizziness, or palpitation. PHYSICAL EXAMINATION: GENERAL: The patient is in no acute distress, slightly agitated. Wanting to go home. VITAL SIGNS: Stable. HEART: S1 and S2 normal and regular. LUNGS: Good bilateral air exchange. ABDOMEN: Soft and nontender. EXTREMITIES: No edema. No calf swelling. No tenderness. No acute ischemia. DIRECTOR RIVER RESTORATION: Essentially unchanged. There is no sign of any acute gross focal motor and sensory neurological deficits. DIAGNOSTIC DATA: Available diagnostic data reviewed. Telemetry monitoring does not reveal any significant arrhythmia. ASSESSMENT AND PLAN: Overall, the patient's general medical condition is stable and back to his normal status. Plan as ordered. Twan West MD
--- NOTE | 2018-04-22 14:19 | CP.PCM.CON ---
History of Present Illness - History of Present Illness History of Present Illness: This is a 53 yr old male with h/0 polysubstance abuse and possibly a psychiatric illness and admitted following a 911 call that pt took overdose on unknown number of seroquel and depakote with anand in a possible suicidal attempt.pt upon arrival in hospital had carduac arrest and was intubated.pt has been extubated since yesterday and became agitated wanting to leave hospital and psych consult requested..Pt wont provide any information and says 'you know very well why i did it 'pt becomes very paranoid and says that he ewants to leave.pt told me that he has [facility] [place] willett and he saw him 1 week ago.pt refuses to be admited for voluntary psych admission and refuses to provide any infoirmation. Review of Systems - Review of Systems All systems: reviewed and no additional remarkable complaints except Past Patient History - Past Social History Smoking Status: Never Smoked - CARDIAC Hx Hypertension: Yes Other/Comment: aotic anneurysm - MUSCULOSKELETAL/RHEUMATOLOGICAL Hx Falls: No - PSYCHIATRIC Hx Substance Use: No - ANESTHESIA Hx Anesthesia Reactions: No Meds Allergies/Adverse Reactions: Allergies Allergy/AdvReac Type Severity Reaction Status Date / Time No Known Allergies Allergy Unverified 04/21/18 20:25 - Medications Medications: Current Medications Pantoprazole Sodium (Protonix Inj) 40 mg IVP DAILY [facility] Last Admin: 04/22/18 08:52 Dose: 40 mg Physical Exam - Psychiatric Exam Psychiatric exam: Agitated, Anxious, Depressed, Flat Affect, Suicidal Ideation Additional comments: Pt has been very paranoid and agitated and still suicidal with poor insight about his suicidal attempt,pt is high risk for suicide and agitation, Results - Vital Signs Recent Vital Signs: Last Vital Signs Temp 98.9 F 04/22/18 12:56 Pulse 93 H 04/22/18 12:56 Resp 18 04/22/18 12:56 BP 137/99 H 04/22/18 12:56 Pulse Ox 98 04/22/18 12:56 - Labs Result Diagrams: 04/22/18 04:28 04/22/18 04:28 Labs: Laboratory Results - last 24 hr 04/22/18 04/22/18 04:28 04:28 WBC 9.1 RBC 4.22 L Hgb 12.8 Hct 38.4 MCV 91.1 MCH 30.3 MCHC 33.2 RDW 14.5 Plt Count 209 Sodium 141 Potassium 4.6 Chloride 108 H Carbon Dioxide 27 Anion Gap 11 BUN 9 Creatinine 0.9 Est GFR ( Amer) > 60 Est GFR (Non-Af Amer) > 60 Random Glucose 86 Calcium 8.3 L Total Bilirubin 1.3 AST 28 ALT 19 L D Alkaline Phosphatase 46 Total Protein 6.3 Albumin 3.3 L Globulin 3.0 Albumin/Globulin Ratio 1.1 Assessment & Plan - Assessment and Plan (Free Text) Assessment: Major depression,severe with psychosis s/p suicidal attempt Plan: 1;1 observation and security by the room as pt is risk for escape and suicide As pt has refused voluntary admission ,will [place] [facility]
--- NOTE | 2018-04-22 15:05 | CARD ---
APPROVED REPORT Date of service: 04/22/2018 EKG Measurement Heart [id number] <Conclusion> Sinus tachycardia Otherwise normal ECG
[2018-04-22] MEDS ORDERED: DiphenhydrAMINE 50 mg/ml Inj IM PRN (19:20)
[2018-04-23 06:30] LABS: HEMOGLOBIN 12.8 g/dL (12.0-18.0); MEAN CELL VOLUME 90.5 fl (80.0-94.0); MEAN CORPUSCULAR HEMOGLOBIN 30.4 pg (27.0-31.0); MEAN CORPUSCULAR HGB CONC 33.6 g/dL (33.0-37.0); RBC 4.22 Mil/uL (4.40-5.90); RED CELL DISTRIBUTION WIDTH 14.6 % (11.5-14.5); WHITE BLOOD COUNT 8.7 K/uL (4.8-10.8)
[2018-04-23 07:01] LABS: ALB/GLOB RATIO 1.1 (1.0-2.1); ALBUMIN 3.3 g/dL (3.5-5.0); ALT/SGPT 25 U/L (21-72); AST/SGOT 16 U/L (17-59); BLOOD UREA NITROGEN 16 mg/dl (9-20); CALCIUM 8.9 mg/dL (8.4-10.2); GFR AFRICAN-AMERICAN > 60; GFR NON-AFRICAN AMERICAN > 60
[2018-04-23] MEDS: Pantoprazole 40 mg EC Tab PO SCH (08:50)
--- NOTE | 2018-04-23 13:42 | PN ---
DATE: 04/23/2018 SUBJECTIVE: The patient seen and examined. Interim events noted. Consults noted and appreciated. Physiatric followup and intervention noted and appreciated. The patient is now on regular medical floor. He is one-to-one observation for safety. The patient denies any specific medical complaint. No chest pain. No shortness of breath. No breathing difficulty. PHYSICAL EXAMINATION: GENERAL: The patient is in no acute distress. VITAL SIGNS: Stable. HEART: S1 and S2, normal and regular. LUNGS: Good bilateral air exchange. ABDOMEN: Soft and nontender. EXTREMITIES: No edema. No calf swelling. No tenderness. No acute ischemia. [employer]: Exam is essentially unchanged. DIAGNOSTIC DATA: Available diagnostic data reviewed. Physiatric consult suggested for involuntary replacement and screening for the same, which is being arranged. ASSESSMENT AND PLAN: Overall, the patient is medically stable. Plan as ordered. Tawn West MD
--- NOTE | 2018-04-23 16:11 | CP.PCM.CON ---
History of Present Illness - History of Present Illness History of Present Illness: follow up consult This is a 53 yr old male with h/0 polysubstance abuse and possibly a psychiatric illness and admitted following a 911 call that pt took overdose on unknown number of seroquel and depakote with red wine in a possible suicidal attempt pt on evaluation continues to be edgy irritable, requesting to be discharged, minimizing his recent suicide attempt, with limited insight into illness pt is following up with Dr Mullen at [facility], seen by psychiatrist and therapist twice aweek, refused to share his diagnosis or current medications and doses Past Patient History - Past Social History Smoking Status: Never Smoked - CARDIAC Hx Hypertension: Yes Other/Comment: aotic anneurysm - MUSCULOSKELETAL/RHEUMATOLOGICAL Hx Falls: No - PSYCHIATRIC Hx Substance Use: No - ANESTHESIA Hx Anesthesia Reactions: No Meds Allergies/Adverse Reactions: Allergies Allergy/AdvReac Type Severity Reaction Status Date / Time No Known Allergies Allergy Unverified 04/21/18 20:25 - Medications Medications: Current Medications Diphenhydramine HCl (Benadryl) 50 mg IM Q6 PRN PRN Reason: Agitation Haloperidol Lactate (Haldol) 5 mg IM Q6 PRN PRN Reason: Agitation Hydrochlorothiazide (Hydrodiuril) 25 mg PO DAILY [facility] Last Admin: 04/23/18 10:50 Dose: 25 mg Lisinopril (Zestril) 20 mg PO DAILY [facility] Last Admin: 04/23/18 10:50 Dose: 20 mg Lorazepam (Ativan) 2 mg IM Q6 PRN PRN Reason: Agitation Pantoprazole Sodium (Protonix Ec Tab) 40 mg PO DAILY [facility] Last Admin: 04/23/18 08:50 Dose: 40 mg Physical Exam - Psychiatric Exam Additional comments: pt seen in bed, partial eye contact, speech under productive mood angry, affect irritable, poor insight into illness, alert awake , oriented to person and palce Results - Vital Signs Recent Vital Signs: Last Vital Signs Temp 97.5 F L 04/23/18 15:43 Pulse 108 H 04/23/18 15:43 Resp 19 04/23/18 15:43 BP 141/95 H 04/23/18 15:43 Pulse Ox 99 04/23/18 15:43 - Labs Result Diagrams: 04/23/18 05:00 04/23/18 05:00 Labs: Laboratory Results - last 24 hr 04/20/18 04/23/18 04/23/18 22:49 05:00 05:00 WBC 8.7 RBC 4.22 L Hgb 12.8 Hct 38.2 MCV 90.5 MCH 30.4 MCHC 33.6 RDW 14.6 H Plt Count 191 pO2 76 H VBG pH 7.39 VBG pCO2 36 L VBG HCO3 22.8 VBG Total CO2 22.9 VBG O2 Sat (Calc) 98.3 H VBG Base Excess -2.6 L VBG Potassium 3.8 Sodium 134.0 140 Chloride 101.0 104 Glucose 130 H Lactate 2.8 H FiO2 100.0 Crit Value Called To lolita [place] Crit Value Called By 22 Crit Value Read Back Y Blood Gas Notified Time 2250 Potassium 3.9 Carbon Dioxide 27 Anion Gap 13 BUN 16 Creatinine 1.1 Est GFR ( Amer) > 60 Est GFR (Non-Af Amer) > 60 Random Glucose 96 Calcium 8.9 Total Bilirubin 0.8 AST 16 L D ALT 25 Alkaline Phosphatase 51 Total Protein 6.1 L Albumin 3.3 L Globulin 2.9 Albumin/Globulin Ratio 1.1 Venous Blood Potassium 3.8 Assessment & Plan - Assessment and Plan (Free Text) Assessment: substance induced mood disorder rule out bipolar disorder Plan: pt at current mental status is high suicide risk, refusing voluntary admission pt to be referred to be screened for involuntary admission for continuity of care recommend haldol 2mg q6prn po for agitation, ativan 1mg po q6prn for anxiety, benadryl 25mg po q6 prn for eps
[2018-04-24] MEDS: Pantoprazole 40 mg EC Tab PO SCH (09:02)
--- NOTE | 2018-04-24 09:52 | PN ---
DATE: 04/24/2018 SUBJECTIVE: The patient seen and examined. Interim events noted. Psychiatric followup and intervention noted and appreciated. The patient remains in regular medical floor. He is one-to-one observation for safety. Denies any specific medical complaints. No chest pain. No shortness of breath. PHYSICAL EXAMINATION: GENERAL: The patient is in no acute distress. VITAL SIGNS: Stable. Diastolic blood pressure slightly elevated. HEART: S1, S2. Normal and regular. LUNGS: Good bilateral air exchange. ABDOMEN: Soft. EXTREMITIES: No edema. No calf swelling. No tenderness. No acute ischemia. MANAGER IT SECURITY: Essentially unchanged. DIAGNOSTIC DATA: Available diagnostic data. ASSESSMENT AND PLAN: Overall, the patient's general medical condition is stable.. Await sensitive screen. Plan as ordered. Twan West MD
[2018-04-24 16:22] VITALS: RESP 18; O2SAT 97
[2018-04-25 01:05] VITALS: BP 126/87; PULSE 84; TEMP 98.4
== END 2018-04-25 00:35 | DRG 582 ==
LOC: H.ER 22:14 → H.ERHOLD 23:08 → H.ICU/CCU 04-21 00:32 → H.MEDSURG1 04-22 12:04
PROVIDERS: ADMIT Internal Medicine; ATTEND Internal Medicine
PROC: 0BH17EZ Insertion of Endotracheal Airway into Trachea, Via Natural or Artificial Opening (ICD-10-PCS; principal; 2018-04-20)
PROC: 5A1935Z Respiratory Ventilation, Less than 24 Consecutive Hours (ICD-10-PCS; 2018-04-20)
PROC: 06HM33Z Insertion of Infusion Device into Right Femoral Vein, Percutaneous Approach (ICD-10-PCS; 2018-04-20)
DX: T43.592A Poisoning by other antipsychotics and neuroleptics, intentional self-harm, initial encounter (principal); I46.8 Cardiac arrest due to other underlying condition; J96.90 Respiratory failure, unspecified, unspecified whether with hypoxia or hypercapnia; F32.2 Major depressive disorder, single episode, severe without psychotic features; T42.4X2A Poisoning by benzodiazepines, intentional self-harm, initial encounter; T42.6X2A Poisoning by other antiepileptic and sedative-hypnotic drugs, intentional self-harm, initial encounter; I95.9 Hypotension, unspecified; I10 Essential (primary) hypertension